=== PATIENT | female | born 1935 | race Caucasian/White ===

== ENCOUNTER → 2019-08-26 16:43 | Outpatient (CLI) | payer MEDICARE, OTHER ==
[2019-08-26 17:31] LABS: BILIRUBIN NEGATIVE (NEGATIVE); GLUCOSE NEGATIVE (NEGATIVE); KETONE NEGATIVE (NEGATIVE); NITRITE POSITIVE (NEGATIVE); UROBILINOGEN NORMAL (NORMAL)
[2019-08-26 17:32] LABS: BACTERIA MANY /hpf (NEGATIVE); RED CELLS - URINE 0-5 /hpf (0-5); WHITE CELLS - URINE 25-50 /hpf (NEGATIVE)
== END | disposition home or self-care (01) ==
LOC: D.LABREF 16:43
PROVIDERS: ATTEND Family Medicine
DX: N39.0 Urinary tract infection, site not specified (principal)